=== PATIENT | male | born 1950 ===

== ENCOUNTER 2023-04-11 09:08 | Observation (INO) | payer MEDICARE ==
[2023-04-07 09:09] VITALS: BP 119/79; PULSE 78; RESP 18
[2023-04-11] VITALS (24 sets, daily range): BP systolic 86–141; BP diastolic 43–77; PULSE 57–80; RESP 14–18
[~2023-04-11] VITALS: Ht 160 cm; Wt 54.7 kg
[2023-04-11] MEDS ORDERED: LACTATED RINGERS 1000ML 1,000 ML IV ONE (09:15)
[2023-04-11] MEDS ORDERED: CEFAZOLIN SODIUM 2 GM VIAL ONE (09:15)
[2023-04-11 09:42] LABS: BASOPHILS # (AUTO) 0.08 K/uL (0.00-0.20); BASOPHILS % (AUTO) 1.4 % (0.0-5.0); EOSINOPHILS # (AUTO) 0.19 K/uL (0.00-0.70); EOSINOPHILS % (AUTO) 3.4 % (0.0-8.0); HEMATOCRIT 37.2 % (42-54); IMMATURE GRANULOCYTE ABSOLUTE 0.01 K/uL (0-1); LYMPHOCYTES # (AUTO) 2.2 K/uL (1.0-4.8); LYMPHOCYTES % (AUTO) 39.4 % (21.0-51.0); MEAN CORPUSCULAR HEMOGLOBIN 27.5 pg (27.0-33.0); MEAN CORPUSCULAR HGB CONC 32.8 g/dL (32.0-36.0); MONOCYTES # (AUTO) 0.5 K/uL (0.1-1.0); MONOCYTES % (AUTO) 8.2 % (3.0-13.0); NEUTROPHILS # (AUTO) 2.7 K/uL (1.8-7.7); NEUTROPHILS % (AUTO) 47.4 % (40.0-77.0); PLATELET COUNT (AUTO) 345 K/uL (130-400); RED BLOOD CELL COUNT(AUTO) 4.43 MIL/uL (4.50-6.20); RED CELL DISTRIBUTION WIDTH 13.4 % (11.0-15.5); WHITE BLOOD COUNT (AUTO) 5.6 K/uL (4.8-10.8)
[2023-04-11 09:50] LABS: POTASSIUM 3.9 mmol/L (3.5-5.1)
[2023-04-11] MEDS ORDERED: PROPOFOL 1000 MG/100 ML 100 ML IV ONE (12:57)
[2023-04-11] MEDS ORDERED: DEXMEDETOMIDINE HCL 200 MCG/2 ML VIAL IV ONE (12:57)
[2023-04-11] MEDS ORDERED: BUPIVACAINE/PF 0.5% 30ML VIAL ONE (13:23)
[2023-04-11] MEDS ORDERED: LIDOCAINE 2%-EPI 1:200,000 20 ML VIAL IJ ONE ×2 (13:23→13:43)
[2023-04-11] MEDS ORDERED: CEFAZOLIN SODIUM 2 GM VIAL IVPB ONE (13:30)
[2023-04-11] MEDS ORDERED: PROPOFOL 10 MG/ML 20ML VIAL IV ONE (13:31)
[2023-04-11] MEDS ORDERED: BUPIVACAINE/PF 0.5% 30ML VIAL INJ ONE (13:43)
== END 2023-04-11 18:35 | disposition home or self-care (01) ==
LOC: DAH 09:08 → DAHIP 09:09 → DAH 09:09 → 3AH 16:33
PROVIDERS: ADMIT Surgery; ATTEND Surgery
DX: K40.90 Unilateral inguinal hernia, without obstruction or gangrene, not specified as recurrent (principal); Z20.822 Contact with and (suspected) exposure to COVID-19; Z79.899 Other long term (current) drug therapy; Z98.890 Other specified postprocedural states; Z86.73 Personal history of transient ischemic attack (TIA), and cerebral infarction without residual deficits
CPT/HCPCS: 87426; 49505; 80048; 85025; 36415; 88302; 88304; A6260; G0378 ×4; A4600; A4663; J7120 ×2; A4452; A4649; J2704 ×2; J3490 ×5; J0690 ×2; C1781; A4930; A4215; A4223; A4222; A4221